=== PATIENT | female | born 1940 | race Caucasian/White ===

== ENCOUNTER 2022-03-29 15:17 | Inpatient (IN) | payer MEDICARE, BC ==
[~2022-03-29] VITALS: Ht 160 cm; Wt 50.8 kg
--- NOTE | 2022-03-29 15:25 | NUR ---
[id number] FROM HOME LEFT THIGH PAIN S/P GLF AT 11AM TODAY. PLACED ON BED, AAOX4, BREATHING EVEN AND UNLABORED SATURATING AT 97%RA, PAINFREE WHEN SHES NOT MOVING HER L LEG.
[2022-03-29] MEDS ORDERED: ACETAMINOPHEN ES 500 MG TABLET ONE (16:27)
[2022-03-29] MEDS ORDERED: ACETAMINOPHEN ES 500 MG TABLET PO ONE (16:30)
[2022-03-29] MEDS ORDERED: KETOROLAC TROMETHAMINE INJ 60 MG/2 ML VIAL IM ONE (18:30)
[2022-03-29] MEDS ORDERED: MELA1TAB47 PO (18:36)
[2022-03-29] MEDS ORDERED: RIVA3CAP17 PO (18:36)
[2022-03-29] MEDS ORDERED: CITA40TA11 PO (18:36)
[2022-03-29] MEDS ORDERED: GABA-532 PO (18:36)
[2022-03-29] MEDS ORDERED: CYAN500T9 PO (18:36)
[2022-03-29] MEDS ORDERED: CHOL100043 PO (18:36)
[2022-03-29] MEDS ORDERED: LORA10TA68 PO (18:36)
[2022-03-29] MEDS ORDERED: MEMA10TA56 PO (18:36)
[2022-03-29] MEDS ORDERED: POLY17PO4 PO (18:36)
[2022-03-29] MEDS ORDERED: SIME125T3 PO (18:36)
[2022-03-29] MEDS ORDERED: CETI1TAB9 PO (18:36)
[2022-03-29] MEDS ORDERED: FLUT1DIS3 INH (18:36)
--- NOTE | 2022-03-29 18:40 | NUR ---
COVID SWAB COLLECTED AND SENT TO LAB
[2022-03-29] MEDS ORDERED: KETOROLAC TROMETHAMINE INJ 30 MG/ML VIAL ONE (18:45)
[2022-03-29 19:40] LABS: CREATININE 0.8 mg/dL (0.6-1.3); POTASSIUM 4.1 mmol/L (3.5-5.1)
[2022-03-29] MEDS ORDERED: ACETAMINOPHEN 325 MG TABLET PO PRN (20:00)
[2022-03-29] MEDS ORDERED: MAG HYDROX/AL HYDROX/SIMETH 30 ML UDC PO PRN (20:00)
[2022-03-29] MEDS ORDERED: MAGNESIUM HYDROXIDE 30 ML UDC PO PRN (20:00)
[2022-03-29] MEDS ORDERED: ONDANSETRON HCL/PF 4 MG/2 ML VIAL IVP PRN (20:00)
[2022-03-29] MEDS ORDERED: LORATADINE 10 MG TABLET PO PRN (20:00)
[2022-03-29] MEDS ORDERED: MORPHINE SULFATE INJ 2 MG/ML DISP.SYRIN IV PRN (20:00)
[2022-03-29] MEDS ORDERED: Z GUARD REMEDY 4 OZ OINT TP PRN (20:00)
[2022-03-29] MEDS ORDERED: POLYETHYLENE GLYCOL 3350 17 GM POWD.PACK PO PRN (20:00)
[2022-03-29 20:33] LABS: BASOPHILS % (AUTO) 0.1 % (0.0-2.0); HEMATOCRIT 37 % (33-45); HEMOGLOBIN 12.3 g/dL (11.5-14.8); LYMPHOCYTES # (AUTO) 1.5 K/uL (0.8-4.8); LYMPHOCYTES % (AUTO) 16.6 % (20.0-44.0); MEAN CORPUSCULAR HGB CONC 33 g/dl (31.0-36.0); MEAN CORPUSCULAR VOLUME 90 fL (82-100); MONOCYTES # (AUTO) 0.5 K/uL (0.1-1.30); NEUTROPHILS # (AUTO) 6.9 K/uL (1.8-8.9); NEUTROPHILS % (AUTO) 75.3 % (43.0-81.0); PLATELET COUNT (AUTO) 281 K/uL (150-450); RED BLOOD CELL COUNT(AUTO) 4.12 MIL/uL (4.0-5.2); WHITE BLOOD COUNT (AUTO) 9.2 K/uL (4.3-11.0)
--- NOTE | 2022-03-29 20:50 | NUR ---
REPORT TO RR
--- NOTE | 2022-03-29 20:58 | NUR ---
SMEARER NOTES RECEIVED PATIENT FROM ER VIA GURNEY ACCOMPANIED BY RN AND COMMUNICATIONS DEPARTMENT CHAIR. VITAL SIGNS TAKEN. NO SIGNS AND SYMPTOMS OF RESPIRATORY DISTRESS. BREATHING ROOM AIR, EVEN AND UNLABORED. IV ACCESS AT MELISSA #20, SALINE LOCK, FLUSHING WELL. NO SIGNS OF INFILTRATION NOTED. ORIENTED TO ROOM SET-UP, BELONGINGS COUNTED AND DOCUMENTED. SAFETY PRECAUTIONS INITIATED, SIDE RAILS UP X3, BED LOCKED AND LOWERED, CALL LIGHT WITHIN REACH. WILL CONTINUE TO MONITOR THROUGHOUT SHIFT.
--- NOTE | 2022-03-29 21:02 | NUR ---
PT TRANSPORTED TO ROM 328 VIA GURNEY IN STABLE CONDITION
--- NOTE | 2022-03-29 21:05 | NUR ---
PATIENT REFUSED VISUAL ASSESSMENT OF SKIN. SHE JUST WANTED TO REST AT THIS TIME. WILL FOLLOW-UP IN THE MORNING.
[2022-03-29] MEDS: GABAPENTIN 100 MG CAPSULE PO SCH (21:34)
[2022-03-29 21:58] VITALS: BP 97/51
--- NOTE | 2022-03-30 04:47 | NUR ---
wilmaneint is Addendum: 03/30/22 at 0448 by NOLBERTO DAVILA RN ERROR
--- NOTE | 2022-03-30 07:18 | NUR ---
LEARNING OFFICER NOTES PATIENT IS LYING AWAKE IN BED. BREATHING ROOM AIR, EVEN AND UNLABORED. NO SIGNS AND SYMPTOMS OF RESPIRATORY DISTRESS. IV ACCESS AT LEFT HAND #20, SALINE LOCK, FLUSHING WELL. NO SIGNS OF INFILTRATION NOTED. NO COMPLAINT OF PAIN AT THIS TIME. VERBALIZED FEELING RESTED. SAFETY PRECAUTIONS INITIATED, SIDE RAILS UP X3, BED LOCKED AND LOWERED, CALL LIGHT WITHIN REACH. WILL ENDORSE TO DAY SHIFT RN FOR XOCHITL. Addendum: 03/30/22 at 0721 by NOLBERTO DAVILA RN RN CLOSING NOTES
[2022-03-30 07:23] LABS: CALCIUM, SERUM 8.3 mg/dL (8.5-10.1); CREATININE 0.6 mg/dL (0.6-1.3); PHOSPHORUS 3.9 mg/dL (2.5-4.9)
[2022-03-30 07:35] LABS: BASOPHILS % (AUTO) 0.2 % (0.0-2.0); HEMATOCRIT 35 % (33-45); LYMPHOCYTES # (AUTO) 0.8 K/uL (0.8-4.8); LYMPHOCYTES % (AUTO) 8.3 % (20.0-44.0); MEAN CORPUSCULAR HGB CONC 34 g/dl (31.0-36.0); MEAN CORPUSCULAR VOLUME 89 fL (82-100); MONOCYTES # (AUTO) 0.6 K/uL (0.1-1.30); MONOCYTES % (AUTO) 5.5 % (2.0-12.0); NEUTROPHILS # (AUTO) 8.5 K/uL (1.8-8.9); PLATELET COUNT (AUTO) 275 K/uL (150-450); RED BLOOD CELL COUNT(AUTO) 3.99 MIL/uL (4.0-5.2); WHITE BLOOD COUNT (AUTO) 10.1 K/uL (4.3-11.0)
[2022-03-30 08:00] VITALS: BP 100/57
--- NOTE | 2022-03-30 08:00 | NUR ---
RN OPENING NOTE- PT AWAKE IN BED, INTERACTIVE WITH MILD CONFUSION. ORIENTED TO PERSON, PLACE, PURPOSE. DENIES PAIN AT PRESENT. CHEST CLEAR. BOWEL SOUNDS POSITIVE. SKIN INTACT THROUGHOUT. LEFT PELVIC FRACTURE, AWAITING ORTHO. MONITOR SAFETY, COMFORT, VS. WILL OBTAIN PUREWICK AND APPLY. SIDE RAILS UP X4. CALL LIGHT WITHIN REACH. CONTINUE TO MONITOR AND ASSIST.
[2022-03-30 08:06] LABS: MAGNESIUM 2.1 mg/dL (1.8-2.4)
[2022-03-30] MEDS: ALBUTEROL FS 2.5 MG/0.5 ML VIAL.NEB NEB SCH ×3 (08:29→21:31)
[2022-03-30] MEDS: BUDESONIDE RESPULE INH 0.5 MG/2 ML AMPUL.NEB NEB SCH ×2 (08:29→17:00)
[2022-03-30] MEDS ORDERED: FLUTICASONE/SALMETEROL 1 DISK IH SCH (09:00)
[2022-03-30] MEDS: CITALOPRAM HYDROBROMIDE 20 MG TABLET PO SCH (09:20)
[2022-03-30] MEDS: RIVASTIGMINE TARTRATE 1.5 MG CAPSULE PO SCH ×2 (09:20→17:27)
[2022-03-30] MEDS: MEMANTINE HCL 5 MG TABLET PO SCH ×2 (09:21→17:27)
--- NOTE | 2022-03-30 09:50 | NUR ---
RN NOTE APPLIED PUREWICK TO CONTINUOUS SUCTION AT 40. TOLERATING WELL. PT AT BEDSIDE AT EVAL.
[2022-03-30] MEDS: ENOXAPARIN SODIUM 40 MG/0.4 ML DISP.SYRIN SQ SCH (10:08)
--- NOTE | 2022-03-30 11:06 | NUR ---
RN NOTE- SON LEROY [phone] STATED THAT PT HAS HOME HEALTH NURSE AND PHYSICAL THERAPY.
[2022-03-30] MEDS: HYDROCODONE/APAP 5/325MG TABLET PO PRN (11:14)
--- NOTE | 2022-03-30 13:00 | NUR ---
RN NOTE - PT CONTINUOUSLY PULLING AT HER LEFT WRIST IV SITE. WRAPPED WITH KIRLAX GAUZE. WRAPPED WITH SLEEVE AND PT CONTINUOS TO ATTEMPT IV REMOVAL. DR. DE LEON NOTIFIED AND HE ORDERED SOFT RIGHT WRIST RESTRAINT. COMPLIED. SON LEROY NOTIFIED AND AGREES.
[2022-03-30 16:00] VITALS: BP 94/50
--- NOTE | 2022-03-30 18:50 | NUR ---
RN CLOSING NOTE PT AWAKE IN BED, INTERACTIVE WITH MILD CONFUSION. ORIENTED TO PERSON, PLACE. DENIES PAIN AT PRESENT. CHEST CLEAR. PT ON SOFT WRIST RESTRAINTS. WAS APPLIED PUREWICK DURING THE SHIFT, PT CONTINUOUSLY REMOVING THE PUREWICK. NO S/S OF DISTRESS OR SOB NOTED, BREATHING EVEN AND NONLABORED. NO BEHAVIORAL OR MEDICAL CHANGES NOTED. SAFETY MEASURES MAINTAINED: BED LOCKED AND IN LOWEST POSITION, SIDE RAILS UP X2. CALL LIGHT AND BED SIDE TABLE IN EASY REACH. WILL MONITOR PT ACCORDINGLY. ENDORSED TO KICK PRESS SETTER FOR XOCHITL.
[2022-03-30 20:00] VITALS: BP 93/52
--- NOTE | 2022-03-30 20:00 | NUR ---
RN OPENING NOTE RECEIVED PT AWAKE IN BED, INTERACTIVE WITH MILD CONFUSION. A/O X3. NO S/S OF DISTRESS OR SOB NOTED, BREATHING EVEN AND NONLABORED. NO BEHAVIORAL OR MEDICAL CHANGES NOTED. SAFETY MEASURES MAINTAINED: BED LOCKED AND IN LOWEST POSITION, SIDE RAILS UP X2. CALL LIGHT AND BED SIDE TABLE IN EASY REACH. WILL MONITOR PT ACCORDINGLY.
[2022-03-30] MEDS: GABAPENTIN 100 MG CAPSULE PO SCH (21:14)
[2022-03-31] MEDS: ALBUTEROL FS 2.5 MG/0.5 ML VIAL.NEB NEB SCH ×3 (01:30→13:28)
[2022-03-31 06:59] LABS: BASOPHILS % (AUTO) 0.2 % (0.0-2.0); EOSINOPHILS % (AUTO) 1.8 % (0.0-6.0); HEMATOCRIT 35 % (33-45); HEMOGLOBIN 11.8 g/dL (11.5-14.8); LYMPHOCYTES # (AUTO) 0.9 K/uL (0.8-4.8); LYMPHOCYTES % (AUTO) 9.3 % (20.0-44.0); MEAN CORPUSCULAR HGB CONC 34 g/dl (31.0-36.0); MEAN CORPUSCULAR VOLUME 89 fL (82-100); MONOCYTES # (AUTO) 0.4 K/uL (0.1-1.30); MONOCYTES % (AUTO) 4.8 % (2.0-12.0); NEUTROPHILS # (AUTO) 7.8 K/uL (1.8-8.9); NEUTROPHILS % (AUTO) 83.9 % (43.0-81.0); PLATELET COUNT (AUTO) 264 K/uL (150-450); RED BLOOD CELL COUNT(AUTO) 3.98 MIL/uL (4.0-5.2); WHITE BLOOD COUNT (AUTO) 9.3 K/uL (4.3-11.0)
[2022-03-31 07:03] LABS: CALCIUM, SERUM 8.5 mg/dL (8.5-10.1); CARBON DIOXIDE 27 mmol/L (21-32); CHLORIDE 107 mmol/L (98-107); CREATININE 0.5 mg/dL (0.6-1.3); GLUCOSE 121 mg/dL (74-106); POTASSIUM 4.1 mmol/L (3.5-5.1); SODIUM SERUM 140 mmol/L (136-145); UREA NITROGEN, BLOOD 17 mg/dL (7-18)
--- NOTE | 2022-03-31 07:21 | NUR ---
RN CLOSING NOTE PT AWAKE IN BED, INTERACTIVE WITH MILD CONFUSION. ORIENTED TO PERSON, PLACE. DENIES PAIN AT PRESENT. NO S/S OF DISTRESS OR SOB NOTED, BREATHING EVEN AND NONLABORED. NO BEHAVIORAL OR MEDICAL CHANGES NOTED. SAFETY MEASURES MAINTAINED: BED LOCKED AND IN LOWEST POSITION, SIDE RAILS UP X2. CALL LIGHT AND BED SIDE TABLE IN EASY REACH. ENDORSED TO DAY SHIFT FOR XOCHITL.
[2022-03-31 08:00] VITALS: BP 104/51
--- NOTE | 2022-03-31 08:12 | NUR ---
RN OPENING NOTE- PT AWAKE IN BED, WITH CONTINUED CONFUSION. ORIENTED TO PERSON. DENIES PAIN AT PRESENT. CHEST CLEAR. BOWEL SOUNDS POSITIVE. SKIN INTACT THROUGHOUT. LEFT PELVIC FRACTURE. MAY TRANSFER TO SNF. DR DE LEON AT BEDSIDE. MONITOR SAFETY, COMFORT, VS. PT REMOVED PUREWICK AGAIN, WILL REATTACH. SOFT RIGHT WRIST RESTRAINTS IN PLACE. IV #[address] LEFT HAND IN PLACE, INTACT, WRAPPED WITH KERLIX. SIDE RAILS UP X4. CALL LIGHT WITHIN REACH. CONTINUE TO MONITOR AND ASSIST.
[2022-03-31] MEDS: HYDROCODONE/APAP 5/325MG TABLET PO PRN (08:58)
[2022-03-31] MEDS: BUDESONIDE RESPULE INH 0.5 MG/2 ML AMPUL.NEB NEB SCH ×2 (09:01→16:04)
[2022-03-31] MEDS ORDERED: Hydrocodone/Apap 5/325MG PO (09:11)
[2022-03-31] MEDS ORDERED: DOCU-141 PO (09:11)
[2022-03-31] MEDS: RIVASTIGMINE TARTRATE 1.5 MG CAPSULE PO SCH ×2 (09:24→17:09)
[2022-03-31] MEDS: MEMANTINE HCL 5 MG TABLET PO SCH ×2 (09:24→17:09)
[2022-03-31] MEDS: ENOXAPARIN SODIUM 40 MG/0.4 ML DISP.SYRIN SQ SCH (09:24)
[2022-03-31] MEDS: CITALOPRAM HYDROBROMIDE 20 MG TABLET PO SCH (09:24)
--- NOTE | 2022-03-31 15:30 | NUR ---
SS consult: SS consult requested for pt. hospitalized due to fall at home, living with her son. CLEMENCIA completed chart review and pt. has Hx. of Dementia and is a poor historian. CLEMENCIA called the pt.'s son, Biju Stack [phone] and discussed pt.'s history and safe DC plan. Biju states that the pt. has been [place] [address] [facility] [facility] [address] for the past month as he has seen the pt.'s dementia is progressing. Biju states the pt. is currently receiving PT 2x/week and RN 1X/wee for BP check, a walk etc. by [facility] . Per Biju the pt. is being followed by PCP Ericka No & NeurologistHector at [facility]. Per Biju Neuro is ruling out Parkinson's Disease as pt. has allegedly has left sided weakness which contributed to the pt.'s fall at home. Per Biju pt. has had a previous fall at home but he was able to catch her and pt. did not fall. Per Biju the pt. has a cane at home, and pt. maxwell not use any drugs or alcohol and has no other mental health diagnosis. Per CM, pt. will be discharging to [facility] todat at 7 pm. Biju states he feels this is a good DC plan for her hoping she can build some strength before returning home. CLEMENCIA emailed Biju ([email or web address]) the Senior resources and Biju thanked CLEMENCIA. ABUSE PREVENTION: ELDER ABUSE HOTLINE (30/11) ADULT PROTECTIVE SERVICES HOTLINE LONG-TERM CARE LOCATED WITHIN [facility] Region AREA ON AGING (HOTLINE) ADULT DAY HEALTH CARE CARE CENTERS: Private pay or Medi-deyvi funded adult day care [place] [facility] , [facility] , [facility] , [facility] Adult Day Health Care , [facility] Adult Day Health Care , [facility] Adult Day[facility] Center , [facility] , [place] [facility] , [place] ALZHEIMERS DISEASE/DEMENTIA: Alzheimers Association [facility] www.alz.org/[facility] Department of Aging www.lacity.org Family Caregiver Durant www.caregiver.org [place] Caregiver Resources Center/Family Support www.[facility]aint [facility].org CANCER RESOURCES: [place] Cancer Society www.cancer.org Cancer Support Community www.CancerSupportVvsb.org: CancerCare www.cancercare.org [facility] Cancer Support Center www.[facility].org CRITICAL ACCESS HOSPITAL HEALTH ASSOCIATIONS: AARP www.aarp.org ALS Association (ask for Jessie) www.als.org [place] Diabetes Association www.diabetes.org [place] Heart Association www.heart.org [place] Lung Association www.lungusa.org [place] Parkinson Disease Association www.apdaparkinson.org [place] , www.redcross.org Arthritis Foundation www.arthritis.org Crohns & Colitis Foundation of [place]ese www.ccfa.org/chapters/naty National Multiple Sclerosis Society www.nationalmssociety.org Myasthenia Gravis Foundation www.myasthenia-ca.org National Stroke Association www.stroke.org CONSERVATORSHIP & GUARDIANSHIP: AARP Huma Watson Legal Services Center for Health Care Rights Eldercare Information and Referral Elementary Classroom Teacher Foundation [facility]: [facility] Bar Referral Service [facility] Legal Services Office of the Public Guardian [place] EYESIGHT DISORDER RESOURCES: [place] Macular Degeneration Foundation [facility] www.[facility].org GRIEF AND BEREAVEMENT RESOURCES: [facility] Place , [facility] THE GLASGOW Connection , [facility] Bereavement Center , [place] HEARING DISORDER RESOURCES: [place] Telephone Access Program Deaf and Disabled Telecommunications Program www.ddtp.[facility].ca.gov HearRx Hearing Centers ([place]) Better Hearing Systems , [place] GLA ([facility] Agency on Deafness) V/ TTY; Manager Logistic , [facility] Hearing [facility] -low income hearing aid assistance www.Landingihearingfoundation.org [place] [facility] , Gypsy HELP AT HOME CAREGIVER SUPPORT: In Home Support Services (Must have Medi-Deyvi to be eligible) *Ask for a list of agencies that provide services to assist with care in the home. Local Senior Centers also have listings of care providers. HOME SAFETY MODIFICATIONS AND EQUIPMENT: Senior centers have additional referrals. ID Housing and Community Investment Dept. Handyworker Program (low income) or Visit http://hcidla.[facility].org/fvk-tubkxm-lz for more information National Seating and Mobility and/or ; Forever Active www.foreveractivemed.com Stay Home Safe www.Stayhomesafe.Tablus LIFE ALERT RESPONSE SYSTEM: RSensline Services 499-848-9331 www. Autonomous Marine Systems Life Alert 386-512-7400 www.Appear Life Station 856-620-2149 www.Kindaraation.Tablus Safe Return 293-531-2435 www.alz.or/safereturn Cell Phones for Seniors www.Zettaset MEALS AND FOOD PROGRAMS: [place] Meals on Wheels [phone] [place] Meals on Wheels [phone] [facility] [phone] [place] to the Homebound [phone] [place] to the Homebound [phone] [facility] to the Homebound [phone] [facility] to the Homebound [phone] [facility] Center[facility] [phone] [facility] [phone] ONE Generation [phone] [facility] [phone] [facility] [phone] Meals on Wheels [phone] For all ages: $6.85/ meal w side. Delivered M-F from 10 am-1pm. Application and payment is done over the phone. Frozen meals available for weekends. Emergency Food Coalition [phone] [facility] Marketing Services Specialist [phone] [facility] [phone] [facility] Brown bag lunches [phone] [facility] [phone] MEAL/GROCERY DELIVERY PROGRAMS: Matilde Senior Gourmet Meals [phone]- [facility] [phone]- [facility] Magic Kitchen [phone] Moms Meals [phone] (ask [place]ak for Discount Select grocery stores may provide delivery. MEDICAL INSURANCE SUPPORT SERVICES: Center for Health Care Rights [phone] Health Insurance Counseling/Advocacy Programs (HICAP)-Must have Medicare. Offers counseling for Medi-Deyvi eligibility [phone] Department of Public Marketing Services Specialist [phone] www.[facility].ca.gov Medicare 823-141-5120 www.socialsecurity.org Social Security 158-019-2454 SENIOR ACTIVITY PROGRAMS: *Contact a local senior center, adult school, recreation facility or community college for education, fitness, recreation, and social programs. Aquatic Therapy and Adapted Exercise programs through [facility] [phone] Encore [facility] [phone] www.[facility]/encore U- Senior Friends [phone] [place] Senior Programs [phone] www.oasisnet.org Suddenly 65 www.ulahhnjb55.com SENIOR CENTERS: [facility] [phone] [facility] [phone] [facility] [phone] [facility] [phone] [facility] [phone] [facility] [phone] [facility] [phone] [facility] [phone] One Generation, [facility] [phone] [facility] [phone] [facility] [phone] [facility] [phone] [facility] [phone] TRANSPORTATION: Local [facility] Centers may have applications for transportation programs and additional resources. ACCESS Services [phone] Transportation for seniors and disabled persons 7 days a week requiring 254 hr. advance reservation. Must apply and register for program tk eligible. CITY RIDE [phone] or [phone] Transportation for seniors and persons with ADA card/metro disabled card in the [facility]. M-F only. Must register for services. ONE GENERATION [phone] Serves 65 years + in conjunction with city ride program. Must be registered with both programs. A to B Transport [phone] Provides wheelchair/gurney van service. Adult Medical Transport [phone] Accepts [facility] with prior authorization. Care Van [phone] Provides wheelchair Transport. City Wide Transportation [phone] Provides gurney service Gentle Care [phone] Gurney Transport. [facility] [place] Transportation [phone] wheelchair & gurney transport [facility] Transportation [phone] wheelchair & gurney transport [place] Non-Emergency Transport [phone] wheelchair & gurney transport [facility] Living Center [phone] Short Term Transportation primarily for adults with disabilities on social security income. Nominal fee may apply and a reservation is required. City Cab [phone] or [phone] Travelogy [phone] [place] [address] Referral Services -[phone] For additional programs & services VETERANS RESOURCES: Submissions for Aid and Attendance should be done directly to Federal VA office locatd at : [address] [address] X110 National Caregiver Support Line [phone] [facility] Field Office [phone] [place] Department of Affairs [phone] Pension Information [phone]
[2022-03-31 16:00] VITALS: BP 104/60
--- NOTE | 2022-03-31 19:02 | NUR ---
RN CLOSING NOTE PT AWAKE IN BED, INTERACTIVE WITH MILD CONFUSION. ORIENTED TO PERSON, PLACE. DENIES PAIN AT PRESENT. CHEST CLEAR WAS APPLIED PUREWICK DURING THE SHIFT, PT CONTINUOUSLY REMOVING THE PUREWICK. NO S/S OF DISTRESS OR SOB NOTED, BREATHING EVEN AND NONLABORED. NO BEHAVIORAL OR MEDICAL CHANGES NOTED. DC TO [facility] AT 740 PM. SAFETY MEASURES MAINTAINED: BED LOCKED AND IN LOWEST POSITION, SIDE RAILS UP X2. CALL LIGHT AND BED SIDE TABLE IN EASY REACH. WILL MONITOR PT ACCORDINGLY. ENDORSED TO MEDICAL APPOINTMENT CLERK FOR XOCHTIL.
--- NOTE | 2022-03-31 20:10 | NUR ---
PATIENT WAS PICKED UP BY EMT FOR TRANSPORT TO [facility]. REPORTED THE PATIENTS CASE TO [facility]. DISCHARGED.
== END 2022-03-31 20:10 | DRG 535 ==
LOC: ER 15:20 → MED 20:17
PROVIDERS: ADMIT Internal Medicine; ATTEND Internal Medicine
DX: S32.592A Other specified fracture of left pubis, initial encounter for closed fracture (principal); N17.0 Acute kidney failure with tubular necrosis; W01.0XXA Fall on same level from slipping, tripping and stumbling without subsequent striking against object, initial encounter; Y92.89 Other specified places as the place of occurrence of the external cause; G30.9 Alzheimer's disease, unspecified; F02.80 Dementia in other diseases classified elsewhere, unspecified severity, without behavioral disturbance, psychotic disturbance, mood disturbance, and anxiety; G20 Parkinson's disease; G62.9 Polyneuropathy, unspecified
CPT/HCPCS: 36415; 72170-TC; 73552; 80048-TC; 83735-TC; 84100-TC; 85025-TC; 87081-TC; 94799-TC; 97112-TC; 97530-TC; C9803; G0378; J1650; J1885; J2270